=== PATIENT | female | born 1950 | race Caucasian/White ===

== ENCOUNTER 2020-10-25 05:41 | Inpatient (IN) ==
[2020-10-25] MEDS ORDERED: Ipratropium/Albuterol Neb 3 ML IH ONE (05:48)
[2020-10-25 06:32] LABS: Hematocrit 36.9 % (35.3-44.9); Hemoglobin 12.1 g/dL (11.5-15.4); Immature Granulocytes % 0.6 % (0-4); Lymphocytes # 0.6 K/mcL (0.6-4.6); Lymphocytes % 11.8 %; Mean Corpuscular HGB Conc 32.8 g/dL (31.6-35.5); Mean Corpuscular Hemoglobin 30.1 pg (28.0-33.3); Mean Corpuscular Volume 91.8 fL (83.0-100.0); Monocytes # 0.3 K/mcL (0.0-1.3); Monocytes % 5.8 %; Neutrophils # 3.8 K/mcL (1.6-8.9); Platelet Count 167 K/mcL (140-400); Red Blood Count 4.02 M/mcL (3.82-4.97); Red Cell Distribution Width 13.2 % (11.5-14.5); Segmented Neutrophils % 81.8 %; White Blood Count 4.7 K/mcL (4.3-11.1)
[2020-10-25 06:35] LABS: VBG HCO3 28 mEq/L (21-27); VBG PCO2 41 mmHg (41-51); VBG PH 7.45 pH Units (7.32-7.42); VBG PO2 187 mmHg (25-50)
[2020-10-25 06:47] LABS: BUN/Creatinine Ratio 27 (6-26); Blood Urea Nitrogen 14 mg/dL (8-23); Calcium 8.7 mg/dL (8.6-10.3); Carbon Dioxide 29 mEq/L (23-29); Chloride 97 mEq/L (98-107); Glucose 117 mg/dL (70-105); Osmolality,Calculated 286 (280-300); Potassium 3.1 mEq/L (3.5-5.1); Sodium 137 mEq/L (136-145); eGFR For African Americans > 60 (> 60); eGFR For Non-African Americans > 60 (> 60)
[2020-10-25 07:22] LABS: Troponin I 0.04 ng/mL (< 0.04)
[2020-10-25] MEDS ORDERED: methylPREDNISolone 125 MG/2 ML VIAL IVP ONE (07:30)
[2020-10-25] MEDS ORDERED: Remdesivir 200 MG in 0.9 % Sodium Chloride 100 ML IVPB ONE (07:41)
[2020-10-25] MEDS ORDERED: Ondansetron 4 MG/2 ML VIAL IVP PRN (07:43)
[2020-10-25] MEDS ORDERED: Acetaminophen 325 MG TABLET PO PRN (07:43)
[2020-10-25] MEDS ORDERED: Aspirin 325 MG TABLET PO ONE (07:45)
[2020-10-25] MEDS ORDERED: cefTRIAXone 2,000 MG in Water for inj. (sterile) 20 ML IVP SCH (09:00)
[2020-10-25] MEDS ORDERED: Azithromycin 500 MG in 0.9 % Sodium Chloride 250 ML IVPB SCH (09:00)
[2020-10-25 09:42] LABS: Magnesium 1.9 mg/dL (1.6-2.6)
[2020-10-25 09:50] LABS: Troponin I 0.05 ng/mL (< 0.04)
[2020-10-25] MEDS: Potassium Chloride Elixir 20 MEQ/15 ML UDC PO SCH ×2 (14:29→21:21)
[2020-10-25] MEDS: Furosemide 20 MG/2 ML VIAL IVP SCH (14:29)
[2020-10-25] MEDS: Ipratropium 1 PUFF INHALER IH SCH ×3 (17:43→23:39)
[2020-10-26 01:53] LABS: Hematocrit 36.7 % (35.3-44.9); Hemoglobin 11.8 g/dL (11.5-15.4); Mean Corpuscular HGB Conc 32.2 g/dL (31.6-35.5); Mean Corpuscular Hemoglobin 30.3 pg (28.0-33.3); Mean Corpuscular Volume 94.3 fL (83.0-100.0); Mean Platelet Volume 10.8 fL (9.4-12.4); Platelet Count 188 K/mcL (140-400); Red Blood Count 3.89 M/mcL (3.82-4.97); Red Cell Distribution Width 13.3 % (11.5-14.5); White Blood Count 3.8 K/mcL (4.3-11.1)
[2020-10-26 02:16] LABS: BUN/Creatinine Ratio 30 (6-26); Blood Urea Nitrogen 18 mg/dL (8-23); Calcium 8.7 mg/dL (8.6-10.3); Carbon Dioxide 27 mEq/L (23-29); Chloride 104 mEq/L (98-107); Glucose 127 mg/dL (70-105); Osmolality,Calculated 295 (280-300); Sodium 141 mEq/L (136-145); eGFR For African Americans > 60 (> 60); eGFR For Non-African Americans > 60 (> 60)
[2020-10-26] MEDS: Ipratropium 1 PUFF INHALER IH SCH ×6 (03:41→23:42)
[2020-10-26] MEDS: *HR* Enoxaparin 40 MG/0.4 ML SYRINGE SQ SCH (05:44)
[2020-10-26] MEDS ORDERED: Remdesivir 100 MG in 0.9 % Sodium Chloride 100 ML IVPB SCH (08:00)
[2020-10-26] MEDS: hydrOXYzine pamoate 25 MG CAPSULE PO PRN (09:39)
[2020-10-26] MEDS: Aspirin 81 MG TAB.CHEW PO SCH (09:39)
[2020-10-26] MEDS: Furosemide 20 MG/2 ML VIAL IVP SCH (09:40)
[2020-10-26] MEDS: Azithromycin 250 MG TABLET PO SCH (09:40)
[2020-10-26] MEDS: Budesonide/Formoterol 160/4.5 1 PUFF INH IH SCH ×2 (10:59→22:14)
[2020-10-27] MEDS: Ipratropium 1 PUFF INHALER IH SCH ×6 (03:41→23:29)
[2020-10-27] MEDS: *HR* Enoxaparin 40 MG/0.4 ML SYRINGE SQ SCH (05:15)
[2020-10-27] MEDS: Budesonide/Formoterol 160/4.5 1 PUFF INH IH SCH ×2 (07:45→23:29)
[2020-10-27] MEDS: Azithromycin 250 MG TABLET PO SCH (08:02)
[2020-10-27] MEDS: Aspirin 81 MG TAB.CHEW PO SCH (08:02)
[2020-10-27] MEDS: Furosemide 20 MG/2 ML VIAL IVP SCH (08:03)
[2020-10-27] MEDS: hydrOXYzine pamoate 25 MG CAPSULE PO PRN ×2 (08:03→16:27)
[2020-10-28 02:45] LABS: Hematocrit 36.5 % (35.3-44.9); Hemoglobin 11.4 g/dL (11.5-15.4); Mean Corpuscular HGB Conc 31.2 g/dL (31.6-35.5); Mean Corpuscular Hemoglobin 30.1 pg (28.0-33.3); Mean Corpuscular Volume 96.3 fL (83.0-100.0); Mean Platelet Volume 10.2 fL (9.4-12.4); Platelet Count 285 K/mcL (140-400); Red Blood Count 3.79 M/mcL (3.82-4.97); Red Cell Distribution Width 13.1 % (11.5-14.5)
[2020-10-28 02:52] LABS: White Blood Count 9.1 K/mcL (4.3-11.1)
[2020-10-28 03:06] LABS: BUN/Creatinine Ratio 65 (6-26); Blood Urea Nitrogen 41 mg/dL (8-23); Calcium 9.2 mg/dL (8.6-10.3); Carbon Dioxide 37 mEq/L (23-29); Chloride 100 mEq/L (98-107); Glucose 126 mg/dL (70-105); Magnesium 2.2 mg/dL (1.6-2.6); Osmolality,Calculated 312 (280-300); Sodium 145 mEq/L (136-145); eGFR For African Americans > 60 (> 60); eGFR For Non-African Americans > 60 (> 60)
[2020-10-28] MEDS: Ipratropium 1 PUFF INHALER IH SCH ×5 (04:05→19:55)
[2020-10-28] MEDS: *HR* Enoxaparin 40 MG/0.4 ML SYRINGE SQ SCH (05:50)
[2020-10-28] MEDS: Budesonide/Formoterol 160/4.5 1 PUFF INH IH SCH (07:34)
[2020-10-28] MEDS: Aspirin 81 MG TAB.CHEW PO SCH (08:18)
[2020-10-28] MEDS: Azithromycin 250 MG TABLET PO SCH (08:19)
[2020-10-28] MEDS: Furosemide 20 MG/2 ML VIAL IVP SCH (08:19)
[2020-10-28] MEDS: Melatonin 3 MG TABLET PO PRN (21:26)
[2020-10-28] MEDS: hydrOXYzine pamoate 25 MG CAPSULE PO PRN (21:26)
[2020-10-29] MEDS: Budesonide/Formoterol 160/4.5 1 PUFF INH IH SCH ×3 (00:13→20:03)
[2020-10-29] MEDS: Ipratropium 1 PUFF INHALER IH SCH ×7 (00:13→23:58)
[2020-10-29] MEDS: *HR* Enoxaparin 40 MG/0.4 ML SYRINGE SQ SCH (05:00)
[2020-10-29] MEDS: Furosemide 20 MG/2 ML VIAL IVP SCH (09:26)
[2020-10-29] MEDS: Azithromycin 250 MG TABLET PO SCH (09:26)
[2020-10-29] MEDS: Aspirin 81 MG TAB.CHEW PO SCH (09:26)
[2020-10-29] MEDS: hydrOXYzine pamoate 25 MG CAPSULE PO PRN ×2 (09:30→16:39)
[2020-10-29] MEDS: Melatonin 3 MG TABLET PO PRN (21:18)
[2020-10-30] MEDS: Ipratropium 1 PUFF INHALER IH SCH ×4 (04:17→17:18)
[2020-10-30] MEDS: *HR* Enoxaparin 40 MG/0.4 ML SYRINGE SQ SCH (04:44)
[2020-10-30] MEDS: Budesonide/Formoterol 160/4.5 1 PUFF INH IH SCH (08:35)
[2020-10-30] MEDS: Furosemide 20 MG/2 ML VIAL IVP SCH (09:14)
[2020-10-30] MEDS: Aspirin 81 MG TAB.CHEW PO SCH (09:14)
[2020-10-30 11:28] VITALS: BP 105/70; PULSE 79; TEMP 98; O2SAT 93
== END 2020-10-30 17:09 | disposition home or self-care (01) | DRG 871 ==
LOC: EMEROOARM 05:41 → SUATTDRO 13:52 → 2ANU 13:52
PROVIDERS: ADMIT Internal Medicine; ATTEND Internal Medicine